=== PATIENT | male | born 1985 | race Caucasian/White ===

== ENCOUNTER 2017-03-26 20:16 | Emergency (ER) | payer MEDICAID ==
[2017-03-26 20:34] VITALS: TEMP 99.1
[2017-03-26] MEDS ORDERED: DOXYCYCLINE HYCLATE 100 MG CAP/TAB PO ONE (21:31)
--- NOTE | 2017-03-26 21:34 | EDPHY ---
H & P Time Seen by Provider: 03/26/17 20:52 HPI/ROS: CHIEF COMPLAINT: Abscess HISTORY OF PRESENT ILLNESS: 31-year-old male presents with an abscess over his proximal right thigh which developed secondary to cocaine use. Abscess has been present for a week. No spontaneous drainage. Pain is been increasing. No fevers or chills. There is some surrounding erythema. Patient has prior history of an abscess on his left arm which was treated with what sounds like Keflex and Bactrim. No fever, chills, chest pain, shortness of breath, palpitations, vomiting, diarrhea, urinary complaints, headache, lightheadedness. REVIEW OF SYSTEMS: As per HPI. PAST MEDICAL HISTORY: Patient denies. SOCIAL HISTORY: Admits IV cocaine use. GENERAL APPEARANCE: Well-developed. Well-nourished. Afebrile. FOCUSED EXAM OF right lower extremity: 3 cm by 3 abscess with with a small amount of central drainage is present over the anterior superior iliac spine on the right lower extremity. There is erythema extending approximately 6 cm distally. Full range of motion at the hip. No discomfort with range of motion at the hip. Smoking Status: Never smoked Constitutional: Initial Vital Signs Temperature (C) 37.3 C 03/26/17 20:31 Heart Rate 94 03/26/17 20:31 Respiratory Rate 18 03/26/17 20:31 Blood Pressure 147/83 H 03/26/17 20:31 O2 Sat (%) 94 03/26/17 20:31 O2 Delivery Mode Room Air Allergies/Adverse Reactions: No Known Allergies Allergy (Unverified 03/26/17 20:31) Home Medications: Medication Instructions Recorded Doxycycline Hyclate 100 mg PO BID #20 capsule 03/26/17 Medical Decision Making Procedures: Procedure: Abscess drainage. The patient's abscess was located on the right anterior superior iliac spine/ proximal hip. I obtained verbal consent from the patient to drain the abscess who was informed about the possibility of bleeding and pain. Abscess was anesthetized with lidocaine with epinephrine. The abscess was incised with [a scalpel] and a moderate amount of purulent drainage was expressed. Wound culture was obtained. Abscess was probed. Packing was placed. The patient tolerated the procedure well. The procedure was performed by myself. ED Course/Re-evaluation: 31-year-old male with a abscess on his proximal right for from injection of cocaine. Abscess was I and D done a moderate amount of purulent, foul smelling, discharge was obtained. Wound culture was sent. Patient was placed on doxycycline given the significant surrounding cellulitis, please see the discharge instructions. Differential Diagnosis: Differential diagnoses for the patient's symptom complex was considered including but not limited to methicillin-resistant Staph aureus, methicillin sensitive Staph aureus, superficial skin abscess, intra-articular abscess, septic joint, cellulitis. - Data Points Medications Given: Discontinued Medications Doxycycline Hyclate (Doxycycline Hyclate) 100 mg PO EDNOW ONE PRN Reason: Protocol Stop: 03/26/17 21:32 Last Admin: 03/26/17 21:45 Dose: 100 mg Departure - Departure Disposition: Home, Routine, Self-Care Clinical Impression: Abscess, Cellulitis Condition: Good Instructions: Doxycycline (By mouth), Abscess (ED), Abscess Follow-up (ED) Additional Instructions: Return to the emergency department 48 hours to have the packing removed and repacked if needed. Take antibiotics as directed. Doxycycline 100 mg by mouth 2 times a day. Okay to use Tylenol or ibuprofen as needed for pain. Referrals: NONE *PRIMARY CARE P,. [Primary Care Provider] - As per Instructions Prescriptions: Doxycycline Hyclate 100 mg PO BID #20 capsule
[2017-03-26 22:02] VITALS: BP 113/74; PULSE 83; RESP 16; O2SAT 95
== END 2017-03-26 21:44 | disposition home or self-care (01) ==
LOC: CED 20:16
PROC: 0J9L0ZZ Drainage of Right Upper Leg Subcutaneous Tissue and Fascia, Open Approach (ICD-10-PCS; principal; 2017-03-26)
DX: L02.415 Cutaneous abscess of right lower limb (principal); L03.116 Cellulitis of left lower limb

== ENCOUNTER 2018-10-26 23:44 | Emergency (ER) | payer MEDICAID ==
--- NOTE | 2018-10-26 23:54 | EDPHY ---
H & P Time Seen by Provider: 10/26/18 23:49 HPI/ROS: Chief complaint: [ ] HPI: [ ] [Right] [Left] [Handed] Injury of the [ ], from [ ] This happened [at home] [at work] [ ], occurring [just [employer]] [ ] Reports there is [no] numbness or loss of sensation. Contamination: [ ] FB possibility [ ] Last Td or TDAP: [less than 5 years] [more than 5 years] [but] [less than 10 years] [more than 10 years] Work: [ ] Avocation: [ ] Pt queried and denies: [prior hx of substance abuse] [family history of substance abuse] or [current or prior psychiatric history]. ROS Neuro: [No] numbness or tingling or loss of sensation Smoking Status: Never smoked Allergies/Adverse Reactions: No Known Allergies Allergy (Unverified 03/26/17 20:31) Home Medications: Medication Instructions Recorded Doxycycline Hyclate 100 mg PO BID #20 capsule 03/26/17
--- NOTE | 2018-10-27 00:25 | EDPHY ---
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 Of note is that he has run out of veins so he essentially is IM at this point in time. He has been attempting to use IM gluteal shots however he did not bother checking any resources so he simply would inject in the larger portion of the gluteus. He states he uses the area as when he was 13 years old he received differential injection for fractured leg However, 4 days ago it started becoming quite tender to the touch. Now to the point where they are exquisitely uncomfortable. His last use of heroin was this morning. Fortunately, he denies any fevers or chills or nausea vomiting or anorexia, nor shaking chills nor goose flesh. He has never had any MRSA. No prior back surgery. No prior history of murmur. No prior history of bacterial endocarditis or septicemia. His last tetanus shot was in 2011. He will be given a TDAP today P: He is able to walk just fine and for example, step up to occur. However, he is unable sit on this area Q: Achy pain that is sharp when he tries to sit on R: Located solely at the gluteus, does not radiate S: Moderate to severe T: Progressive over 4 days Old charts were reviewed. He had a right upper thigh abscess in March of 2017 which was polymicrobial. He was treated with doxycycline when seen here in the urgent care. REVIEW OF SYSTEMS: Constitutional: No fever, no chills. Eyes: No discharge ENT: No sore throat. Cardiovascular: No chest pain, no palpitations. Respiratory: No cough, shortness of breath, or wheezing. Gastrointestinal: No Nausea, vomiting, abdominal pain or diarrhea Genitourinary: No hematuria or frequency. Musculoskeletal: No back pain. Skin: See above Neurological: No headache. A 10 system review of systems was performed and is negative except for the noted findings in the HPI. Source: Patient Exam Limitations: No limitations - Personal History Current Tetanus/Diphtheria Vaccine: Yes Current Tetanus Diphtheria and Acellular Pertussis (TDAP): Yes - Medical/Surgical History Hx Asthma: No Hx Chronic Respiratory Disease: No Hx Diabetes: No Hx Cardiac Disease: No Hx Renal Disease: No Hx Cirrhosis: No Hx Alcoholism: No Hx HIV/AIDS: No Hx Splenectomy or Spleen Trauma: No Other PMH: prior abscesses secondary to IV drug use - Social History Smoking Status: Heavy smoker Alcohol Use: None Drug Use: Heroin (Current active user, relying on IM injections.) - Physical Exam Exam: General Appearance: Alert, no distress. Afebrile. Normal phonation. No respiratory distress. Eyes: Pupils equal and round no pallor or injection. No icterus ENT, Mouth: Mucous membranes slightly dry Pharynx without erythema or exudate. TM Clear. Neck: No adenopathy. Supple. No JVD. Trachea in midline. Respiratory: There are no retractions, lungs are clear to auscultation. Cardiovascular: Regular rate and rhythm, without murmur Abdomen: Soft and nontender, no masses, bowel sounds normal. . Neurological: Ox3. No motor weakness. Sensation intact. Gait nl. Skin: Warm and dry. Overlying both buttocks there large abscesses. On a bedside ultrasound the greater abscess, on the right, is approximately 10 x 6 cm by 1.5 cm. On the left buttock, this is smaller than the right, measuring by bedside ultrasound to be 8 x 6 x 1 cm. These are 1.5 cm below the surface of the skin, each. On clinical exam there is no clear site of fluctuance to suggest a site for I and D, however there is extensive induration, warmth and erythema. Multiple scabs are located on the right biceps area however he states this is from him picking at the skin. None of them appear actively infected. Of note he has no splinter hemorrhages, or Janeway lesions. Musculoskeletal: No joint swelling. Extremities: No edema. Homans sign negative. No cords. Psychiatric: Normal affect. Patient is oriented X 3. There is no agitation Constitutional: Initial Vital Signs Temperature (C) 37.0 C 10/26/18 23:55 Heart Rate 85 10/26/18 23:55 Respiratory Rate 18 10/26/18 23:55 Blood Pressure 137/81 H 10/26/18 23:55 O2 Sat (%) 98 10/26/18 23:55 O2 Delivery Mode Room Air Allergies/Adverse Reactions: No Known Allergies Allergy (Unverified 03/26/17 20:31) Home Medications: Medication Instructions Recorded NK [No Known Home Meds] 10/26/18 Medical Decision Making ED Course/Re-evaluation: After initially saw the patient and informed of the need for trip to the operative room for thorough I and D and debridement. He seemed to be willing at that point in time. After I initially evaluated the patient the staff attempted look for possible sites for blood assessment and IV access. Unfortunately, the patient is used virtually everything up. There is nothing in his neck even for IJ line. However, by then he was working through the plan and reported he needed to go to his aunt's house to get his belongings, as so he stated. At that point time since ultimately a referral and trip to [facility] be necessary, states he will go straight to [facility]. He is oriented x3 and without signs of drug toxicity and was able to report back to me the risks of leaving. I explained to him that would not be in his best interest, interjecting a delay. Further, I am concerned he may not show up in a timely fashion at all. That would expose him to increase potential for complications such as sepsis, endocarditis, necrotizing fasciitis and . Call was placed to pharmacy. They indicated they would take 8 cc in order to give this patient 3 g of Unasyn. Thus, I will opt for Rocephin instead as it is much more pragmatic. Further, it would give him 24 hr of coverage, granted limited, as I am fearful that he will not follow through in a timely manner. I did call the ER physician on duty at [facility] to discuss the case and suggest the patient may be showing up in 2-3 hours as the patient has told us he would. Differential Diagnosis: Diagnostic considerations include, but are not limited to, the following, 5this represents a partial list of diagnoses considered These considerations are based on history, physical exam, past history, reassessment and diagnostic testing: Bilateral buttock abscesses, deep space abscess of the pelvis, septicemia, SIRS. - Data Points Medications Given: Discontinued Medications Ceftriaxone Sodium (Rocephin 1 Gm Vial) 2 gm IM EDNOW ONE PRN Reason: Protocol Stop: 10/27/18 01:10 Last Admin: 10/27/18 01:29 Dose: Not Given Ceftriaxone Sodium (Rocephin) 2 gm IM EDNOW ONE PRN Reason: Protocol Stop: 10/27/18 01:10 Last Admin: 10/27/18 01:44 Dose: 2 gm Diphtheria/Tetanus/Acell Pertussis (Boostrix) 0.5 ml IM .ONCE ONE Stop: 10/27/18 00:33 Last Admin: 10/27/18 00:56 Dose: 0.5 ml Ceftriaxone Sodium 2 gm/ (Sodium Chloride/ Sterile Water) 5.2 mls @ 0 mls/hr IM EDNOW ONE; As Directed PRN Reason: Protocol Stop: 10/27/18 01:30 Last Admin: 10/27/18 01:43 Dose: Not Given Departure - Departure Disposition: Against Medical Advice Condition: Serious Additional Instructions: Come back at any time as you are leaving A - Against Medical Advice. Please, do follow through and go to [facility]. Referrals: Patient,NotPresent [Primary Care Provider] - As per Instructions
[2018-10-27] MEDS ORDERED: TDAP ADULT 0.5 ML INJ (BOOSTRIX) IM ONE (00:32)
[2018-10-27 00:58] VITALS: BP 128/82
[2018-10-27] MEDS ORDERED: cefTRIAXone 1 GM VIAL IM ONE (01:09)
[2018-10-27] MEDS ORDERED: cefTRIAXone 2 GM VIAL IM ONE (01:09)
[2018-10-27] MEDS: CEFTRIAXONE IM ONE ×2 (01:35→01:43)
[2018-10-27] MEDS: STERILE WATER IM ONE ×2 (01:35→01:43)
[2018-10-27] MEDS: NS IM ONE ×2 (01:35→01:43)
== END 2018-10-27 01:45 | disposition left against medical advice (07) ==
LOC: CED 23:44
DX: L02.31 Cutaneous abscess of buttock (principal); Z23 Encounter for immunization
CPT/HCPCS: 90471-ER; 96372-ER; 99284-ER; J0696